=== PATIENT | female | born 1965 | race Caucasian/White ===

== ENCOUNTER 2016-10-21 17:00 | Emergency (ER) | payer MEDICAID ==
[2016-10-21] MEDS ORDERED: LORazepam 1 MG TAB PO ONE (17:10)
--- NOTE | 2016-10-21 18:42 | EDPHY ---
H & P Stated Complaint: BIBA b/c snorted unknown substance today, +ETOH, twitching uncontrollably Time Seen by Provider: 10/21/16 17:01 HPI/ROS: CHIEF COMPLAINT: polysubstance abuse HISTORY OF PRESENT ILLNESS: 51-year-old female presents emergency department by ambulance after snorting on unknown substance given to her by another homeless person. Patient reports she was drinking vodka today. Immediately after she snorted this white powder she felt like she could not move and called 911. Patient reports she thinks they were trying to tranquilize her and steal her money. Patient denies chest pain, abdominal pain. Patient was agitated on arrival to the emergency department and given 2 mg of oral lorazepam. On repeat examination she is calm, denies suicidal ideations, homicidal ideations, auditory and visual hallucinations. Patient reports she has bipolar and takes her Depakote and lithium daily. REVIEW OF SYSTEMS: A comprehensive 10 point review of systems is otherwise negative aside from elements mentioned in the history of present illness. Source: Patient, EMS Exam Limitations: Clinical condition - Personal History LMP (Females 10-55): Post Menopausal Current Tetanus/Diphtheria Vaccine: Yes Current Tetanus Diphtheria and Acellular Pertussis (TDAP): Yes Tetanus Vaccine Date: 2015 - Medical/Surgical History Hx Asthma: No Hx Chronic Respiratory Disease: No Hx Diabetes: No Hx Cardiac Disease: No Hx Renal Disease: No Hx Cirrhosis: No Hx Alcoholism: Yes Hx HIV/AIDS: No Hx Splenectomy or Spleen Trauma: No Other PMH: PMH: DEPRESSION, BIPOLAR, HYPOTHYROID, SCHIZOPHRENIA, HEP C. PSH: BTL - Social History Smoking Status: Never smoked Alcohol Use: Heavy - Physical Exam Exam: Physical Exam Gen: Alert and Oriented, NAD HEENT: PERRL, dry mucous membranes NECK: no meningismus CV: Tachycardic rate and regular rhythm PULM: CTAB, no wheezes ABDOMEN: soft, non tender to palpation, BS present BACK: No CVA tenderness NEURO: Neurologically grossly intact, moves all extremities, no facial asymmetry, follows commands EXTREMITIES: normal appearing SKIN: no rash or break in skin on exposed skin PSYCH: answers questions appropriately denies suicidal ideations, homicidal ideations, auditory and visual hallucinations. Constitutional: Initial Vital Signs Temperature (C) 36.4 C 10/21/16 17:05 Heart Rate 116 H 10/21/16 17:05 Respiratory Rate 20 10/21/16 17:05 Blood Pressure 132/87 H 10/21/16 17:05 O2 Sat (%) 91 L 10/21/16 17:05 O2 Delivery Mode Room Air Allergies/Adverse Reactions: latex [Latex] Allergy (Unknown, Verified 10/21/16 17:25) morphine Allergy (Unknown, Verified 10/21/16 17:25) Home Medications: Medication Instructions Recorded Depakote 10/21/16 Levothyroxine 10/21/16 Flasher Carbonate 10/21/16 Medical Decision Making ED Course/Re-evaluation: Patient wash in the emergency department for 2 hours. She has normal vital signs, normal respirations, normal room air oxygen saturations. She is feeling better after receiving 2 mg of oral lorazepam. Patient is clinically sober, steady gait, no tongue fasciculations, no tremors, no auditory or visual hallucinations. She is requesting to be discharged. I feel comfortable with this. I have recommended not using drugs. Differential Diagnosis: Psychosis including but not limited to chronic psychosis, medication noncompliance, medication side effect, depression and illicit drug use. - Data Points Medications Given: Discontinued Medications Lorazepam (Ativan) 2 mg PO EDNOW ONE Stop: 10/21/16 17:11 Last Admin: 10/21/16 17:19 Dose: 2 mg Departure - Departure Disposition: Home, Routine, Self-Care Clinical Impression: Polysubstance abuse Condition: Good Instructions: Polysubstance Abuse (ED) Additional Instructions: 1. [facility] operate a 21/10 psychiatric crisis unit located at [facility]. The telephone number for the 24 hour crisis center is [phone]. 2. Please return to the ED if you are feeling suicidal, having thoughts of harming yourself/others or should you feel unsafe or have worsening symptoms. Referrals: [facility] [Clinic] - As per Instructions
[2016-10-21 19:18] VITALS: BP 124/100; PULSE 110; RESP 18; TEMP 97.9; O2SAT 96
== END 2016-10-21 19:35 | disposition home or self-care (01) ==
LOC: EDUNIT#
DX: F19.10 Other psychoactive substance abuse, uncomplicated (principal); Z91.040 Latex allergy status

== ENCOUNTER 2016-10-25 19:54 | Emergency (ER) | payer MEDICAID ==
[2016-10-25 20:05] VITALS: BP 151/101; PULSE 102; RESP 20; TEMP 97.7; O2SAT 97
[2016-10-25] MEDS ORDERED: LORazepam 1 MG TAB PO ONE (20:19)
[2016-10-25] MEDS ORDERED: CHLORDIAZEPOXIDE 25MG PREPK#6 BTL TAKEHOME ONE (20:23)
--- NOTE | 2016-10-25 20:23 | EDPHY ---
H & P Stated Complaint: pt snorted meth, c/o cp Time Seen by Provider: 10/25/16 20:12 HPI/ROS: CHIEF COMPLAINT: Meth use HISTORY OF PRESENT ILLNESS: Patient is a 51-year-old homeless female who comes to the emergency department complaining of chest pain after snorting methamphetamine. She states the exact same thing happened a few days ago. She was seen here at that time had a negative EKG and felt better after receiving Ativan. She has a history of depression, bipolar and schizophrenia. She denies any shortness of breath. Her chest pain is now gone. It only lasted for a few minutes. She is very antsy. She states that she has also been drinking. She is not compliant with her medications. REVIEW OF SYSTEMS: Constitutional: denies: chills, fever, recent illness, recent injury EENTM: denies: blurred vision, double vision, nose congestion Respiratory: denies: cough, shortness of breath Cardiac: See HPI, denies: lightheadedness, palpitations Gastrointestinal/Abdominal: denies: abdominal pain, diarrhea, nausea, vomiting, blood streaked stools Genitourinary: denies: dysuria, frequency, hematuria, pain Musculoskeletal: denies: joint pain, muscle pain Skin: denies: lesions, rash, jaundice, bruising Neurological: denies: headache, numbness, paresthesia, tingling, dizziness, weakness Hematologic/Lymphatic: denies: blood clots, easy bleeding, easy bruising Immunologic/allergic: denies: HIV/AIDS, transplant EXAM: GENERAL: Well-appearing, well-nourished and in no acute distress. HEAD: Atraumatic, normocephalic. EYES: Pupils equal round and reactive to light, extraocular movements intact, sclera anicteric, conjunctiva are normal. ENT: TMs normal, nares patent, oropharynx clear without exudates. Moist mucous membranes. NECK: Normal range of motion, supple without lymphadenopathy or JVD. LUNGS: Breath sounds clear to auscultation bilaterally and equal. No wheezes rales or rhonchi. HEART: Regular rate and rhythm without murmurs, rubs or gallops. ABDOMEN: Soft, nontender, normoactive bowel sounds. No guarding, no rebound. No masses appreciated. BACK: No CVA tenderness, no spinal tenderness, step-offs or deformities EXTREMITIES: Normal range of motion, no pitting or edema. No clubbing or cyanosis. NEUROLOGICAL: Cranial nerves II through XII grossly intact. Normal speech, normal gait. 5/5 strength, normal movement in all extremities, normal sensation PSYCH: Normal mood, normal affect. SKIN: Copper colored skin Warm, dry, normal turgor, no visible rashes or lesions. Source: Patient Exam Limitations: No limitations - Personal History LMP (Females 10-55): Post Menopausal Tetanus Vaccine Date: 2015 - Medical/Surgical History Hx Asthma: No Hx Chronic Respiratory Disease: No Hx Diabetes: No Hx Cardiac Disease: No Hx Renal Disease: No Hx Cirrhosis: No Hx Alcoholism: Yes Hx HIV/AIDS: No Hx Splenectomy or Spleen Trauma: No Other PMH: PMH: DEPRESSION, BIPOLAR, HYPOTHYROID, SCHIZOPHRENIA, HEP C. PSH: BTL - Family History Significant Family History: No pertinent family hx - Social History Smoking Status: Never smoked Alcohol Use: Heavy Drug Use: Other Constitutional: Initial Vital Signs Temperature (C) 36.5 C 10/25/16 20:02 Heart Rate 102 H 10/25/16 20:02 Respiratory Rate 20 10/25/16 20:02 Blood Pressure 151/101 H 10/25/16 20:02 O2 Sat (%) 97 10/25/16 20:02 O2 Delivery Mode Room Air Allergies/Adverse Reactions: latex [Latex] Allergy (Unknown, Verified 10/21/16 17:25) morphine Allergy (Unknown, Verified 10/21/16 17:25) Home Medications: Medication Instructions Recorded NK [No Known Home Meds] 10/25/16 Medical Decision Making ED Course/Re-evaluation: The patient is relieved with the results of her EKG. She declines further workup or testing. I will give her Ativan. She would like to go to the alcohol recovery Center. Will release her at this time. I advised her not to use methamphetamine any more. Differential Diagnosis: Partial list of the Differential diagnosis considered include but were not limited to; polysubstance abuse, acute coronary disease, arrhythmia and although unlikely based on the history and physical exam, I also considered infection, head injury, PE. I discussed these differential diagnoses and the plan with the patient as well as the usual and expected course. The patient understands that the diagnosis is provisional and that in medicine we are not always correct and that further workup is often warranted. Usual and customary warnings were given. All of the patient's questions were answered. The patient was instructed to return to the emergency department should the symptoms at all worsen or return, otherwise to followup with the physician as we discussed. - Data Points Medications Given: Discontinued Medications Chlordiazepoxide (Librium 25 Mg Prepack#6) 1 btl TAKEHOME EDNOW ONE Stop: 10/25/16 20:24 Last Admin: 10/25/16 20:43 Dose: 1 btl Lorazepam (Ativan) 2 mg PO EDNOW ONE Stop: 10/25/16 20:20 Last Admin: 10/25/16 20:46 Dose: 2 mg Departure - Departure Disposition: Home, Routine, Self-Care Clinical Impression: Polysubstance abuse Alcoholic intoxication Qualifiers: Complication of substance-induced condition: with unspecified complication Qualified Code(s): F10.929 - Alcohol use, unspecified with intoxication, unspecified Condition: Fair Instructions: Alcohol Intoxication (ED), Polysubstance Abuse (ED) Additional Instructions: Stop using methamphetamine Referrals: Patient,NotPresent [Primary Care Provider] - As per Instructions Riki Germain MD [Medical Doctor] - As per Instructions
--- NOTE | 2016-10-25 20:44 | CPEKG ---
Heart Rate: 96 RR Interval: 625 P-R Interval: 184 QRSD Interval: 88 QT Interval: 384 QTC Interval: 486 P Applegate: 30 QRS Applegate: 27 T Wave Applegate: 21 EKG Severity - BORDERLINE ECG - EKG Impression: SINUS RHYTHM EKG Impression: BORDERLINE PROLONGED QT INTERVAL Electronically Signed By: Senthil Clayton 27-Oct-2016 16:01:40
== END 2016-10-25 21:29 | disposition home or self-care (01) ==
LOC: EDUNIT#
DX: F10.120 Alcohol abuse with intoxication, uncomplicated (principal); F19.10 Other psychoactive substance abuse, uncomplicated; Z91.040 Latex allergy status

== ENCOUNTER 2016-12-03 10:27 | Emergency (ER) | payer MEDICAID ==
--- NOTE | 2016-12-03 11:04 | EDPHY ---
H & P Stated Complaint: etoh withdrawal meth use 2 weeks ago/feeling unstable - Personal History LMP (Females 10-55): Post Menopausal Current Tetanus/Diphtheria Vaccine: Yes Tetanus Vaccine Date: 2015 - Medical/Surgical History Hx Asthma: No Hx Chronic Respiratory Disease: No Hx Diabetes: No Hx Cardiac Disease: No Hx Renal Disease: No Hx Cirrhosis: No Hx Alcoholism: Yes Hx HIV/AIDS: No Hx Splenectomy or Spleen Trauma: No Other PMH: PMH: DEPRESSION, BIPOLAR, HYPOTHYROID, SCHIZOPHRENIA, HEP C. PSH: BTL - Social History Smoking Status: Never smoked Time Seen by Provider: 12/03/16 11:03 Constitutional: Initial Vital Signs Temperature (C) 36.5 C 12/03/16 10:41 Heart Rate 82 12/03/16 10:41 Respiratory Rate 18 12/03/16 10:41 Blood Pressure 117/85 H 12/03/16 10:41 O2 Sat (%) 98 12/03/16 10:41 O2 Delivery Mode Room Air O2 (L/minute) 2 Allergies/Adverse Reactions: latex [Latex] Allergy (Unknown, Verified 12/03/16 10:39) morphine Allergy (Unknown, Verified 12/03/16 10:39) Home Medications: Medication Instructions Recorded NK [No Known Home Meds] 10/25/16 Medical Decision Making ED Course/Re-evaluation: CHIEF COMPLAINT: Alcohol withdrawal. HISTORY OF PRESENT ILLNESS: This patient is an alcoholic 51 year old female arriving with her uncle requesting placement in a long-term alcohol addiction recover program. She states she has been a chronic alcoholic for 20-30 years, and that she has various mental health issues associated with alcohol use. She has been in several addiction recovery programs from 21 days to 6 months, but has relapsed following each program. She is interested in pursuing a a one year program and would like to explore her options for placement. Her uncle at bedside reports she has become very self-destructive, living on the streets and occasionally falling asleep [place]. The patient denies recent trauma or illness. REVIEW OF SYSTEMS: A 10 point review of systems was performed and is negative with the exception of the elements mentioned in the history of present illness. PHYSICAL EXAM: HR, BP, O2 Sat, RR. Temp noted General Appearance: Alert, well hydrated, appropriate, and non-toxic appearing. Head: Atraumatic without scalp tenderness or obvious injury Eyes: Pupils equal, round, reactive to light and accommodation, EOMI, no trauma , no injection. Ears: Clear bilaterally, no perforation, normal landmarks Nose: Atraumatic, no rhinorrhea, clear. Throat: There is no erythema or exudates, no lesions, normal tonsils, mucus membranes moist. Neck: Supple, nontender, no lymphadenopathy. Respiratory: No retractions, no distress, no wheezes, and no accessory muscle use. Lungs are clear to auscultation bilaterally. Cardiovascular: Regular rate and rhythm, no murmurs, rubs, or gallops. Good capillary refill all extremities. Gastrointestinal: Abdomen is soft, nontender, non-distended. Musculoskeletal: Normal active ROM of all extremities, atraumatic. Neurological: Alert, appropriate, and interactive. Nonfocal neuro exam. Skin: No rashes, good turgor, no nodules on palpation. Past medical history: Alcoholism Past surgical history: Noncontributory Family history: Noncontributory Social history: Uncle at bedside. Single. Lives in [place]. Transient, currently staying with her uncle. Endorses use of alcohol, occasional methamphetamine usage. Denies tobacco use. MEDICAL DECISION MAKIN51 year old female presents requesting options for long-term alcohol addiction recovery placement. Plan to have case management consult. Patient now also states that she is suicidal after we described her that it would be very difficult to place her for alcohol rehab with her current insurance status. She wants to be placed for 6 months to a year. Psychiatric evaluation pending ( Senthil Clayton) 8:30 p.m. I was called to the patient's room because she has a rash to her right flank. I evaluated. It looks like insect bites. She states that she was asleep and a pile of ants. She has been scratching it. I will treat her with Benadryl. She is currently being evaluated by Mental Health. 9:20 p.m. the patient has been evaluated by Mental Health. He she is no longer suicidal but is having minor withdrawal symptoms. They would like to transfer to the Addiction recovery Center. The patient agrees with this plan and will follow up with mental health in the crisis Center thereafter. She is not on a hold. I will discharge her [facility] the [facility] with Librium. I will give her 1 more dose of Ativan here in the emergency department. (Blake Storey) - Data Points Laboratory Results: Laboratory Results 12/03/16 11:05 12/03/16 11:05 12/03/16 12/03/16 12/03/16 15:15 13:19 11:05 WBC RBC Hgb Hct MCV MCH MCHC RDW Plt Count MPV Neut % (Auto) Lymph % (Auto) [place] % (Auto) Eos % (Auto) Baso % (Auto) Nucleat RBC Rel Count Absolute Neuts (auto) Absolute Lymphs (auto) Absolute Monos (auto) Absolute Eos (auto) Absolute Basos (auto) Absolute Nucleated RBC Immature Gran % Immature Gran # Sodium Potassium Chloride Carbon Dioxide Anion Gap BUN Creatinine Estimated GFR Glucose Calcium Beta HCG, Qual Beta HCG, Quant 11.70 mIU/mL H mIU/mL (0.00-4.83) Urine Opiates Screen NEGATIVE (NEGATIVE) Urine Barbiturates NEGATIVE (NEGATIVE) Ur Phencyclidine Scrn NEGATIVE (NEGATIVE) Ur Amphetamine Screen NEGATIVE (NEGATIVE) U Benzodiazepines Scrn NON-NEGATIVE H (NEGATIVE) Urine Cocaine Screen NEGATIVE (NEGATIVE) U Marijuana (THC) Screen NEGATIVE (NEGATIVE) Ethyl Alcohol < 10 mg/dL mg/dL (0-10) 12/03/16 12/03/16 12/03/16 11:05 11:05 11:05 WBC 7.26 10^3/uL 10^3/uL (3.80-9.50) RBC 4.93 10^6/uL 10^6/uL (4.18-5.33) Hgb 15.8 g/dL g/dL (12.6-16.3) Hct 44.2 % % (38.0-47.0) MCV 89.7 fL fL (81.5-99.8) MCH 32.0 pg pg (27.9-34.1) MCHC 35.7 g/dL g/dL (32.4-36.7) RDW 13.4 % % (11.5-15.2) Plt Count 302 10^3/uL 10^3/uL (150-400) MPV 11.4 fL fL (8.7-11.7) Neut % (Auto) 46.8 % % (39.3-74.2) Lymph % (Auto) 43.0 % % (15.0-45.0) [place] % (Auto) 8.1 % % (4.5-13.0) Eos % (Auto) 1.0 % % (0.6-7.6) Baso % (Auto) 0.7 % % (0.3-1.7) Nucleat RBC Rel Count 0.0 % % (0.0-0.2) Absolute Neuts (auto) 3.40 10^3/uL 10^3/uL (1.70-6.50) Absolute Lymphs (auto) 3.12 10^3/uL H 10^3/uL (1.00-3.00) Absolute Monos (auto) 0.59 10^3/uL 10^3/uL (0.30-0.80) Absolute Eos (auto) 0.07 10^3/uL 10^3/uL (0.03-0.40) Absolute Basos (auto) 0.05 10^3/uL 10^3/uL (0.02-0.10) Absolute Nucleated RBC 0.00 10^3/uL 10^3/uL (0-0.01) Immature Gran % 0.4 % % (0.0-1.1) Immature Gran # 0.03 10^3/uL 10^3/uL (0.00-0.10) Sodium 138 mEq/L mEq/L (134-144) Potassium 3.6 mEq/L mEq/L (3.5-5.2) Chloride 105 mEq/L mEq/L (97-110) Carbon Dioxide 19 mEq/l L mEq/l (22-31) Anion Gap 14 mEq/L mEq/L (8-16) BUN 14 mg/dL mg/dL (7-23) Creatinine 0.8 mg/dL mg/dL (0.6-1.0) Estimated GFR > 60 Glucose 98 mg/dL mg/dL (70-100) Calcium 10.1 mg/dL mg/dL (8.5-10.4) Beta HCG, Qual POSITIVE Beta HCG, Quant Urine Opiates Screen Urine Barbiturates Ur Phencyclidine Scrn Ur Amphetamine Screen U Benzodiazepines Scrn Urine Cocaine Screen U Marijuana (THC) Screen Ethyl Alcohol Medications Given: Discontinued Medications Sodium Chloride (Ns) 1,000 mls @ 0 mls/hr IV ONCE ONE PRN Reason: Wide Open Stop: 12/03/16 11:27 Last Admin: 12/03/16 11:27 Dose: 1,000 mls Lorazepam (Ativan Injection) 1 mg IVP EDNOW ONE Stop: 12/03/16 11:27 Last Admin: 12/03/16 11:27 Dose: 1 mg Departure - Departure Disposition: Home, Routine, Self-Care Clinical Impression: Alcohol dependence Condition: Fair Instructions: Alcohol Withdrawal (ED), Chlordiazepoxide (By mouth) Referrals: JANAE ARMAS [Other] - As per Instructions
[2016-12-03] MEDS ORDERED: LORazepam 2 MG/ML INJ ONE (11:24)
[2016-12-03] MEDS ORDERED: LORazepam 2 MG/ML INJ IVP ONE (11:26)
[2016-12-03] MEDS ORDERED: NS 1,000 ML IV ONE (11:26)
[2016-12-03 11:36] LABS: % IMMATURE GRANULYOCYTES 0.4 % (0.0-1.1); ABSOLUTE IMMATURE GRANULOCYTES 0.03 10^3/uL (0.00-0.10); ADD DIFF? NO; ADD MORPH? NO; ADD SCAN? NO; ATYPICAL LYMPHOCYTE FLAG 20 (0-99); FRAGMENT RBC FLAG 0 (0-99); HEMATOCRIT 44.2 % (38.0-47.0); HEMOGLOBIN 15.8 g/dL (12.6-16.3); LEFT SHIFT FLG 0 (0-99); LIPEMIA HEMOLYSIS FLAG 90 (0-99); MEAN CELL HEMOGLOBIN CONCENTR. 35.7 g/dL (32.4-36.7); MEAN CELL VOLUME 89.7 fL (81.5-99.8); MEAN PLATELET VOLUME 11.4 fL (8.7-11.7); PLATELET CLUMPS FLAG 0 (0-99); PLATELET COUNT 302 10^3/uL (150-400); RED BLOOD CELL COUNT 4.93 10^6/uL (4.18-5.33); RED CELL DISTRIBUTION WIDTH 13.4 % (11.5-15.2)
[2016-12-03 11:44] LABS: CALCIUM 10.1 mg/dL (8.5-10.4); CARBON DIOXIDE 19 mEq/l (22-31); CHLORIDE 105 mEq/L (97-110); CREATININE 0.8 mg/dL (0.6-1.0); GLOMERULAR FILTRATION RATE > 60; GLUCOSE 98 mg/dL (70-100); SODIUM 138 mEq/L (134-144)
[2016-12-03 11:55] LABS: ANION GAP 14 mEq/L (8-16); POTASSIUM 3.6 mEq/L (3.5-5.2)
[2016-12-03 13:27] LABS: ETHANOL SERUM < 10 mg/dL (0-10)
[2016-12-03] MEDS ORDERED: diphenhydrAMINE 25 MG CAP PO ONE (20:38)
[2016-12-03] MEDS ORDERED: LORazepam 1 MG TAB PO ONE (21:18)
[2016-12-03] MEDS ORDERED: CHLORDIAZEPOXIDE 25MG PREPK#6 BTL TAKEHOME ONE (21:31)
[2016-12-03 22:21] VITALS: BP 122/84; PULSE 80; RESP 16; TEMP 97.9; O2SAT 95
== END 2016-12-03 22:01 | disposition home or self-care (01) ==
DX: F10.20 Alcohol dependence, uncomplicated (principal); Z91.040 Latex allergy status
CPT/HCPCS: 80305; 96374; G0480; J2060

== ENCOUNTER 2016-12-05 21:38 | Emergency (ER) | payer MEDICAID ==
[2016-12-05 22:41] LABS: % IMMATURE GRANULYOCYTES 0.4 % (0.0-1.1); ABSOLUTE IMMATURE GRANULOCYTES 0.03 10^3/uL (0.00-0.10); ADD DIFF? NO; ADD MORPH? NO; ADD SCAN? NO; ATYPICAL LYMPHOCYTE FLAG 10 (0-99); FRAGMENT RBC FLAG 0 (0-99); HEMATOCRIT 45.5 % (38.0-47.0); HEMOGLOBIN 15.6 g/dL (12.6-16.3); LEFT SHIFT FLG 0 (0-99); LIPEMIA HEMOLYSIS FLAG 90 (0-99); MEAN CELL HEMOGLOBIN CONCENTR. 34.3 g/dL (32.4-36.7); MEAN CELL VOLUME 93.4 fL (81.5-99.8); MEAN PLATELET VOLUME 10.9 fL (8.7-11.7); PLATELET CLUMPS FLAG 0 (0-99); PLATELET COUNT 280 10^3/uL (150-400); RED BLOOD CELL COUNT 4.87 10^6/uL (4.18-5.33); RED CELL DISTRIBUTION WIDTH 13.7 % (11.5-15.2)
[2016-12-05 22:48] LABS: ANION GAP 20 mEq/L (8-16); CALCIUM 9.5 mg/dL (8.5-10.4); CARBON DIOXIDE 17 mEq/l (22-31); CHLORIDE 113 mEq/L (97-110); CREATININE 0.7 mg/dL (0.6-1.0); ETHANOL SERUM 179 mg/dL (0-10); GLOMERULAR FILTRATION RATE > 60; GLUCOSE 106 mg/dL (70-100); POTASSIUM 4.3 mEq/L (3.5-5.2); SODIUM 150 mEq/L (134-144)
[2016-12-05] MEDS ORDERED: chlordiazePOXIDE 25 MG CAP PO ONE (23:05)
--- NOTE | 2016-12-05 23:09 | EDPHY ---
Mental Health General Previous Psychiatric History: previous inpatient psychiatric admission, bipolar , substance abuse Smoking Status: Never smoked Time Patient Placed on Detainer: 22:55 Time Medically Cleared for Psychiatric Evaluation: 23:00 Narrative: I assumed care of the patient at 7 o'clock in the morning pending psychiatric disposition. Update at 10:00 a.m.: The patient was seen by psychiatric evaluation services. She is no longer intoxicated. She currently denies suicidal ideation. She does contract for safety. She would like to be discharged for further outpatient care. The patient will be referred to [facility] and also given information on alcoholics anonymous. The patient is also given the contact information of the crisis Center. The patient does understand that she can return to the emergency department at any time should she feel worsening symptoms of depression, recurrent suicidal thoughts or have additional acute concerns. (Lee Toribio) CHIEF COMPLAINT: ETOH, suicidal, homicidal HISTORY OF PRESENT ILLNESS: 51-year-old female presents the emergency department by ambulance from the Addiction recovery Center for suicidal ideations and homicidal ideations. Patient reports she is going crazy because of somebody that is stalking her. She does not want to live anymore and she wants to kill him also. Patient reports she has been drinking for 5 weeks. She has been to multiple treatment programs. She denies any drug use. Patient reports she has not taken her bipolar medications for several weeks, last drink was earlier today, patient is concerned she will start withdrawing from alcohol. REVIEW OF SYSTEMS: Unable to obtain due to intoxication and mental status Physical Exam Gen: Awake, alert, tearful HEENT: PERRL, moist mucous membranes NECK: no meningismus CV: regular rate and regular rhythm PULM: CTAB, no wheezes ABDOMEN: soft, non tender to palpation, BS present BACK: No CVA tenderness NEURO: Follows commands, moves all extremities, no facial asymmetry EXTREMITIES: normal appearing SKIN: no rash or break in skin on exposed skin PSYCH: Reports suicidal ideations, homicidal ideations, auditory and visual hallucinations (Ailyn Wright) Medical Decision Makin:30 a.m.- The patient has been stable throughout my shift. He did not require any medications for me for alcohol withdrawal. We are currently awaiting her sobriety for psychiatric evaluation. The case will be signed out to the oncoming provider Dr. Toribio. (Serenity Lubin) 0100-Pt pending eval. Report passed on to Dr. Lubin at the end of my shift. (Ailyn Wright) - Objective Vital Signs: Initial Vital Signs Temperature (C) 36.9 C 12/05/16 21:55 Heart Rate 87 12/05/16 21:55 Respiratory Rate 16 12/05/16 21:55 Blood Pressure 115/76 12/05/16 21:55 O2 Sat (%) 95 12/05/16 21:55 O2 Delivery Mode Room Air Allergies/Adverse Reactions: latex [Latex] Allergy (Unknown, Verified 12/03/16 10:39) morphine Allergy (Unknown, Verified 12/03/16 10:39) Home Medications: Medication Instructions Recorded NK [No Known Home Meds] 10/25/16 Medications Given: Discontinued Medications Chlordiazepoxide HCl (Librium) 50 mg PO EDNOW ONE Stop: 12/05/16 23:06 Last Admin: 12/05/16 23:31 Dose: 50 mg Chlordiazepoxide HCl (Librium) 50 mg PO EDNOW ONE Stop: 12/06/16 08:16 Last Admin: 12/06/16 08:21 Dose: 50 mg Lorazepam (Ativan Injection) 1 mg IVP EDNOW ONE Stop: 12/06/16 10:46 Last Admin: 12/06/16 10:47 Dose: Not Given Lorazepam (Ativan) 1 mg PO EDNOW ONE Stop: 12/06/16 10:46 Last Admin: 12/06/16 10:54 Dose: 1 mg Laboratory Results: Laboratory Results 12/05/16 22:00 12/05/16 22:00 Departure - Departure Disposition: Home, Routine, Self-Care Clinical Impression: Severe major depression, Alcoholic intoxication Condition: Good Instructions: Depression (ED), Alcohol Intoxication (ED) Additional Instructions: 1. Please follow-up with the mental health resources provided in the ED today. 2. [facility] does operate a 21/10 psychiatric crisis unit located at [facility] The telephone number for the 24 hour crisis center is [phone]. 3. Please return to the ED if you are feeling suicidal, having thoughts of harming yourself/others or should you feel unsafe or have worsening symptoms. Referrals: JANAE ARMAS [Other] - As per Instructions
[2016-12-06 08:03] VITALS: O2SAT 95
[2016-12-06] MEDS ORDERED: chlordiazePOXIDE 25 MG CAP PO ONE (08:15)
[2016-12-06] MEDS ORDERED: LORazepam 2 MG/ML INJ IVP ONE (10:45)
[2016-12-06] MEDS ORDERED: LORazepam 1 MG TAB PO ONE (10:45)
[2016-12-06 11:00] VITALS: BP 129/98; PULSE 87; RESP 15; TEMP 97.2
== END 2016-12-06 12:03 | disposition home or self-care (01) ==
LOC: EDUNIT#
DX: F32.2 Major depressive disorder, single episode, severe without psychotic features (principal); F10.129 Alcohol abuse with intoxication, unspecified; Z91.040 Latex allergy status
CPT/HCPCS: 80305; G0480

== ENCOUNTER 2017-01-09 12:50 | Emergency (ER) | payer MEDICAID ==
[2017-01-09] MEDS ORDERED: LORazepam 2 MG/ML INJ IVP ONE (13:30)
--- NOTE | 2017-01-09 13:31 | EDPHY ---
H & P Stated Complaint: SENT FROM [facility] FOR ETOH DETOX Time Seen by Provider: 01/09/17 13:20 HPI/ROS: CHIEF COMPLAINT: Alcohol withdrawal HISTORY OF PRESENT ILLNESS: The patient is referred to the emergency department [facility] for alcohol withdrawal. She presented there last night. She will today with symptoms of withdrawal including tremor and extremity paresthesias. The patient has not had vomiting hallucinations. The patient denies significant past medical history. She has no complaints of acute pain. She denies recent trauma. She states that her last drink was approximately 1 and 1/2 days ago. REVIEW OF SYSTEMS: A comprehensive 10 point review of systems is otherwise negative aside from elements mentioned in the history of present illness. Source: Patient Exam Limitations: No limitations - Personal History LMP (Females 10-55): Post Menopausal Current Tetanus/Diphtheria Vaccine: Yes Tetanus Vaccine Date: 2015 - Medical/Surgical History Hx Asthma: No Hx Chronic Respiratory Disease: No Hx Diabetes: No Hx Cardiac Disease: No Hx Renal Disease: No Hx Cirrhosis: No Hx Alcoholism: Yes Hx HIV/AIDS: No Hx Splenectomy or Spleen Trauma: No Other PMH: PMH: DEPRESSION, BIPOLAR, HYPOTHYROID, SCHIZOPHRENIA, HEP C. PSH: BTL - Social History Smoking Status: Never smoked - Physical Exam Exam: General Appearance: Slightly disheveled, no acute distress, mildly tremulous Eyes: Pupils equal and round no pallor or injection ENT, Mouth: Mucous membranes moist Respiratory: There are no retractions, lungs are clear to auscultation Cardiovascular: Regular rate and rhythm Gastrointestinal: Abdomen is soft and nontender, no masses, bowel sounds normal Neurological: A&O, normal motor function, normal sensory exam, normal cranial nerves Skin: Warm and dry, no rashes Musculoskeletal: Neck is supple nontender Extremities: symmetrical, full range of motion Constitutional: Initial Vital Signs Temperature (C) 36.5 C 01/09/17 12:53 Heart Rate 93 01/09/17 12:53 Respiratory Rate 17 01/09/17 12:53 Blood Pressure 117/90 H 01/09/17 12:53 O2 Sat (%) 95 01/09/17 12:53 O2 Delivery Mode Room Air Allergies/Adverse Reactions: latex [Latex] Allergy (Unknown, Verified 01/09/17 12:52) morphine Allergy (Unknown, Verified 01/09/17 12:52) Home Medications: Medication Instructions Recorded NK [No Known Home Meds] 10/25/16 Medical Decision Making ED Course/Re-evaluation: The patient had an IV established. She received 2 mg of IV Ativan. The patient was re-evaluated by myself at 2:00 p.m.. She is feeling much better. Her tremor and paresthesias have resolved. Her abdominal examination remains benign. She is neurologically intact without evidence of any delirium tremens. The patient will be discharged back to the [facility] with a prepack for Librium. She is given customary aftercare instructions and return precautions. She has no clinical evidence of an acute abdomen or significant vital sign abnormality. Differential Diagnosis: Differential diagnosis considered includes pancreatitis, alcohol withdrawal syndrome, delirium tremens, metabolic abnormality, alcohol withdrawal seizure - Data Points Medications Given: Discontinued Medications Lorazepam (Ativan Injection) 2 mg IVP EDNOW ONE Stop: 01/09/17 13:31 Last Admin: 01/09/17 13:42 Dose: 2 mg Departure - Departure Disposition: Home, Routine, Self-Care Clinical Impression: Alcohol withdrawal Condition: Good Instructions: Alcohol Withdrawal (ED) Additional Instructions: 1. Please return to the [facility] for further assistance with her alcohol withdrawal and dependence. 2. Please return to the ED for symptoms of worsening alcohol withdrawal, seizure , acute abdominal pain, vomiting or other concerns. 3. Please follow up with your primary care provider as scheduled. Referrals: JANAE ARMAS [Other] - As per Instructions
[2017-01-09] MEDS ORDERED: CHLORDIAZEPOXIDE 25MG PREPK#6 BTL TAKEHOME ONE (14:10)
[2017-01-09 14:38] VITALS: BP 117/72; PULSE 105; RESP 16; TEMP 99; O2SAT 93
== END 2017-01-09 14:51 | disposition home or self-care (01) ==
DX: F10.239 Alcohol dependence with withdrawal, unspecified (principal); Z91.040 Latex allergy status
CPT/HCPCS: 96374; J2060

== ENCOUNTER 2017-01-10 19:36 | Emergency (ER) | payer MEDICAID ==
--- NOTE | 2017-01-10 20:14 | EDPHY ---
H & P Time Seen by Provider: 01/10/17 20:02 HPI/ROS: CHIEF COMPLAINT: Fall with head injury HISTORY OF PRESENT ILLNESS: Patient had alcohol today. She fell on the bus hitting her head on some sharp object and presents with scalp laceration. Bleeding from the scalp but denies other injuries. Specifically denies neck pain or weakness or numbness in extremities. REVIEW OF SYSTEMS: Eye: no change in vision ENT: no sore throat Cardiac: no chest pain or syncope Pulmonary: Not short of breath Abdomen: No abdominal pain or vomiting Musculoskeletal: no back pain or neck pain Skin: Scalp laceration Neuro: no headache Constitutional: no fever : no urinary symptoms A comprehensive 10 point review of systems is otherwise negative aside from elements mentioned in the history of present illness. PAST MEDICAL HISTORY: Includes hypothyroid and hep C, psychiatric disease. Discharge summary dated 10/13/2011 states depression and anxiety and personality disorder. Social history: Recent alcohol General Appearance: Alert and conversant, cooperative. Eyes: No scleral icterus. ENT, Mouth: Normal mucous membranes. 1.5 cm occipital scalp laceration. Respiratory: Normal respiratory effort, breath sounds equal, lungs are clear to auscultation. Cardiovascular: Regular rate and rhythm. Gastrointestinal: Abdomen is soft and non tender. Neurological: Alert and oriented x3. Slightly slurred speech but otherwise cooperative. Face symmetric, normal movement and sensation in all extremities. Skin: Scalp laceration as above. Musculoskeletal: No midline spinal tenderness. Psychiatric: Not agitated. Emergency Department course/MDM: Tetanus up-to-date. Not syncope by history. Plan for wound care and closure. Patient hit head and has slurred speech and is intoxicated, neurologic exam not fully reliable given intoxication. Noncontrast head and cervical spine scanning for head trauma and altered mental status from alcohol. 2044: Negative head and cspine CT for trauma, Dr. Betancourt. Smoking Status: Never smoked Constitutional: Initial Vital Signs Temperature (C) 36.5 C 01/10/17 19:39 Heart Rate 92 01/10/17 19:39 Respiratory Rate 18 01/10/17 19:39 Blood Pressure 112/81 H 01/10/17 19:39 O2 Sat (%) 94 01/10/17 19:39 O2 Delivery Mode Room Air Allergies/Adverse Reactions: latex [Latex] Allergy (Unknown, Verified 01/09/17 12:52) morphine Allergy (Unknown, Verified 01/09/17 12:52) Home Medications: Medication Instructions Recorded Ativan 01/10/17 LIBRIUM 01/10/17 Medical Decision Making Procedures: Procedure: Laceration repair. Verbal consent was obtained from the patient. The 1.5 cm laceration on the scalp was anesthetized using 0.5% bupivacaine with epinephrine. The wound was irrigated with standard emergency department protocol, draped and explored. There were no deep structures involved. No foreign body found. The wound was repaired with irma. The wound repair was simple. Excellent hemostasis was obtained. Wound care instructions were discussed and the patient was warned regarding scarring. The procedure was performed by myself. Differential Diagnosis: Differential diagnosis considered for head injury including but not limited to concussion, skull fracture, intraparenchymal contusion, subarachnoid, subdural and epidural hematoma. Departure - Departure Disposition: Home, Routine, Self-Care Clinical Impression: Scalp laceration Qualifiers: Encounter type: initial encounter Qualified Code(s): S01.01XA - Laceration without foreign body of scalp, initial encounter Condition: Good Instructions: Laceration (ED), Head Injury (ED) Additional Instructions: Wound Care Follow-Up: Removal of sutures in 10 days. Suture removal is complimentary in uncomplicated cases. Infection or abnormal findings would require reevaluation by the MD. In that case, you may be billed. Referrals: OLAYINKA ARMAS [Other] - As per Instructions [facility],. [Clinic] - As per Instructions
[2017-01-10 22:05] VITALS: O2SAT 95
[2017-01-10] MEDS ORDERED: CHLORDIAZEPOXIDE 25MG PREPK#6 BTL TAKEHOME ONE (22:12)
[2017-01-10 22:19] VITALS: BP 112/78; PULSE 74; RESP 18; TEMP 97.9
== END 2017-01-10 22:19 | disposition home or self-care (01) ==
LOC: EDUNIT#
PROC: 0HQ0XZZ Repair Scalp Skin, External Approach (ICD-10-PCS; principal; 2017-01-10)
DX: S01.01XA Laceration without foreign body of scalp, initial encounter (principal); Z91.040 Latex allergy status; W18.09XA Striking against other object with subsequent fall, initial encounter

== ENCOUNTER 2017-01-21 17:32 | Emergency (ER) | payer MEDICAID ==
[2017-01-21] MEDS ORDERED: chlordiazePOXIDE 25 MG CAP PO ONE (17:45)
[2017-01-21] MEDS ORDERED: NS 1,000 ML IV ONE (17:45)
[2017-01-21] MEDS ORDERED: LORazepam 2 MG/ML INJ IVP ONE (17:45)
--- NOTE | 2017-01-21 17:47 | EDPHY ---
H & P Time Seen by Provider: 01/21/17 17:32 HPI/ROS: CHIEF COMPLAINT: Alcohol withdrawal HISTORY OF PRESENT ILLNESS: Patient is a 50-year-old female with a history of alcohol abuse and alcohol withdrawal. She states her last drink was approximately 1:00 a.m. last night. She was seen at [facility]. She has received a total of 3 doses of Librium which is the maximum. The patient was subsequently sent to the emergency department. She is still feeling shaky and tremulous. She has had nausea and an episode of vomiting. No abdominal pain. No chest pain. Per report, the [facility] will take her back after she is evaluated in the emergency department. REVIEW OF SYSTEMS: My complete review of systems is negative except as mentioned in the HPI. Past Medical/Surgical History: Includes alcohol withdrawal, alcohol abuse, polysubstance abuse Smoking Status: Never smoked Physical Exam: Vitals noted GENERAL: mild acute distress, alert. HEENT: Eyes normal to inspection, normal pharynx, no signs of dehydration. NECK: No thyromegaly, no lymphadenopathy, supple. RESPIRATORY: Clear to auscultation bilaterally, no rales, rhonchi or wheezing. CVS: regular rhythm with minimal tachycardia, no rubs, murmurs, or gallops. ABDOMEN: Soft, nontender, nondistended, no organomegaly. BACK: Normal to inspection, no CVA tenderness. SKIN: Normal color, no rash, warm, dry. No pallor. EXTREMITIES: No pedal edema, no calf tenderness, no Homans sign or cords, no joint swelling. NEURO/PSYCH: [tremulous. Mild tongue tremor. Alert and oriented x3, normal mood and affect, normal motor sensory exam. No obvious cranial nerve deficit. Constitutional: Initial Vital Signs Temperature (C) 37.3 C 01/21/17 17:38 Heart Rate 96 01/21/17 17:38 Respiratory Rate 20 01/21/17 17:38 Blood Pressure 114/89 H 01/21/17 17:38 O2 Sat (%) 95 01/21/17 17:38 O2 Delivery Mode Room Air Allergies/Adverse Reactions: latex [Latex] Allergy (Unknown, Verified 01/09/17 12:52) morphine Allergy (Unknown, Verified 01/09/17 12:52) Home Medications: Medication Instructions Recorded Ativan 01/10/17 LIBRIUM 01/10/17 Medical Decision Making ED Course/Re-evaluation: In the emergency department IV was placed. The patient was given 1 L of normal saline for hydration. She was given Ativan 1 mg IV and Librium 25 mg orally for alcohol withdrawal. I do not feel the patient needs laboratory studies. On recheck the patient was improved. Her shaking has decreased. She was sleeping in the emergency department. Patient agrees with the plan to be transferred back to the [facility]. She is given warnings prior to leaving. Differential Diagnosis: My differential includes but is not limited to alcohol withdrawal, drug abuse, alcohol abuse, electrolyte abnormality, sugar abnormality - Data Points Medications Given: Discontinued Medications Chlordiazepoxide HCl (Librium) 25 mg PO EDNOW ONE Stop: 01/21/17 17:46 Last Admin: 01/21/17 17:57 Dose: 25 mg Sodium Chloride (Ns) 1,000 mls @ 0 mls/hr IV ONCE ONE PRN Reason: Wide Open Stop: 01/21/17 17:46 Last Admin: 01/21/17 17:57 Dose: 1,000 mls Lorazepam (Ativan Injection) 1 mg IVP EDNOW ONE Stop: 01/21/17 17:46 Last Admin: 01/21/17 17:57 Dose: 1 mg Departure - Departure Disposition: Home, Routine, Self-Care Clinical Impression: Alcohol withdrawal Qualifiers: Complication of substance-induced condition: uncomplicated Qualified Code(s): F10.230 - Alcohol dependence with withdrawal, uncomplicated Condition: Good Instructions: Alcohol Withdrawal (ED) Additional Instructions: Return with worsening tremors, nausea vomiting, or any other concerns. Referrals: Kishor Barth MD [Medical Doctor] - 5-7 days, call for appt.
[2017-01-21] MEDS ORDERED: CHLORDIAZEPOXIDE 25MG PREPK#6 BTL TAKEHOME ONE (18:35)
[2017-01-21 18:52] VITALS: BP 105/65; PULSE 91; RESP 16; TEMP 97.9; O2SAT 97
== END 2017-01-21 18:50 | disposition home or self-care (01) ==
LOC: EDUNIT#
DX: F10.230 Alcohol dependence with withdrawal, uncomplicated (principal); R11.2 Nausea with vomiting, unspecified; Z91.040 Latex allergy status
CPT/HCPCS: 96374

== ENCOUNTER 2017-01-23 21:14 | Emergency (ER) | payer MEDICAID ==
--- NOTE | 2017-01-23 21:31 | EDPHY ---
H & P Source: Patient Exam Limitations: Intoxication - Personal History Tetanus Vaccine Date: 2015 - Medical/Surgical History Hx Asthma: No Hx Chronic Respiratory Disease: No Hx Diabetes: No Hx Cardiac Disease: No Hx Renal Disease: No Hx Cirrhosis: No Hx Alcoholism: Yes Hx HIV/AIDS: No Hx Splenectomy or Spleen Trauma: No Other PMH: PMH: ETOH, DEPRESSION, BIPOLAR, HYPOTHYROID, SCHIZOPHRENIA, HEP C. PSH: BTL - Social History Smoking Status: Never smoked Time Seen by Provider: 01/23/17 21:28 HPI/ROS: HPI: This is a 51-year-old female who presents with Chief Complaint: M1 hold Location:psych Quality: M1 hold Duration: Prior to arrival Signs and Symptoms:+ suicidal ideation without a plan, no homicidal ideation, no paranoia, no hallucinations, + depression, + alcohol abuse Timing: Acute on chronic Severity: Moderate to severe Context: Patient presents to the emergency room with [facility] on M1 hold. Officers were called to house who found the patient on the doorstep, screaming, crying and talking to herself. She admits to being under the influence of alcohol but will not relate how much. She keeps repeating, "I want to kill myself and go to a psych hospital." She does not have a plan. She reports that she has been to inpatient psychiatric treatment 2 other times. She denies using recreational drugs today. Postmenopausal. History of bipolar disorder, PTSD. Admits to being noncompliant on medications. Homeless. During the interview, patient became angry, raised her voice, and asked why was looking at her like that. She states she went to talk to me anymore. She did not like me. Modifying Factors: None Comment: ROS: see HPI Constitutional: No fever, no chills, no weight loss Eyes: No blurred vision Respiratory: No shortness of breath, no cough Cardiovascular: No chest pain Gastrointestinal: No nausea, no vomiting, no diarrhea Genitourinary: No dysuria Extremities: No myalgias Neurologic: No weakness, no numbness Skin: No rashes Hematologic: No bruising, no bleeding MEDICAL/SURGICAL/SOCIAL HISTORY: Medical history: Hepatitis-C, hypothyroidism. Does not take any regular medications. Surgical history: Bilateral tubal ligation Social history: Homeless CONSTITUTIONAL: Untidy middle age white female appears older than stated age, awake and alert, no obvious distress HEENT: Atraumatic and normocephalic, PERRL, EOMI. Tympanic membranes clear. Oropharynx clear, no exudate and moist pink mucosa. Airway patent. No lymphadenopathy. No meningismus. Cardiovascular: Normal S1/S2, regular rate, regular rhythm, without murmur rub or gallop. PULMONARY/CHEST: Symmetrical and nontender. Clear to auscultation bilaterally. Good air movement. No accessory muscle usage. ABDOMEN: Soft, nondistended, nontender, no rebound, no guarding, no peritoneal signs, no masses or organomegaly. No CVAT. EXTREMITIES: 2/2 pulses, strength 5/5, no deformities, no clubbing, no cyanosis or edema. NEUROLOGICAL: no focal neuro deficits. GCS 15. Slurred speech. SKIN: Warm and dry, no erythema. no rash. Good capillary refill. PSYCH: Poor eye contact, no flight of ideas, organized thought process, poor insight and judgment, no auditory and visual command hallucinations, + suicidal ideation WITHOUT a plan, now homicidal ideation, no paranoia (Esteban,Terra) Constitutional: Initial Vital Signs Temperature (C) 34.5 C L 01/23/17 21:55 Heart Rate 78 01/23/17 21:55 Respiratory Rate 16 01/23/17 21:55 Blood Pressure 101/81 H 01/23/17 21:55 O2 Sat (%) 91 L 01/23/17 21:55 O2 Delivery Mode Room Air Allergies/Adverse Reactions: latex [Latex] Allergy (Unknown, Verified 01/09/17 12:52) morphine Allergy (Unknown, Verified 01/09/17 12:52) Home Medications: Medication Instructions Recorded NK [No Known Home Meds] 01/23/17 Medical Decision Making ED Course/Re-evaluation: Labs, urine drug screen ordered 2042: M1 hold. Patient is clearly under the influence of alcohol and intoxicated. She is able to be redirected with verbal commands and calm down. No chemical intervention ordered. Suspect will outpatient to sober up and re- evaluate for suicidal ideations. 5: Reviewed labs and ethanol level 294, UDS is positive for benzodiazepine No signs of delirium/seizure/electrolyte imbalance/acute kidney injury 0100: Reassessed patient; sleeping soundly. End of Shift. Signed over to Dr. Harrell. Suspect after several hours, and patient is no longer intoxicated, will repeat evaluation to determine if truly suicidal once sober. Patient has been calm and cooperative throughout my shift. No interventions have been required. (Mellissa Orellana) 190: Patient has been evaluated by mental health. Medically cleared. They do not feel that she needs inpatient psychiatric hospitalization. She is not suicidal. She presented to the emergency room intoxicated with alcohol. She is now sober. I did going [facility] and meet with her. She is calm and cooperative. Has no complaints she would like to be discharged. (Balbir Arora) Differential Diagnosis: Altered mental status including but not limited to hypoglycemia, infectious process, electrolyte abnormality, head injury and intoxicants. (Mellissa Orellana) Other Provider: 0100 care assumed by me from MORENA rOellana pending sober mental health evaluation. [address] patient signed out to Dr. Storey pending mental health evaluation. No issues during my care this patient overnight. (Ishan Harrell) 3:00 p.m. patient has been calm and her room. She did receive Librium for mild withdrawal symptoms. We are awaiting evaluation . Care transferred to Dr. Balbir Arora. (Blake Storey) - Data Points Laboratory Results: Laboratory Results 01/23/17 21:52 01/23/17 21:52 Medications Given: Discontinued Medications Chlordiazepoxide HCl (Librium) 50 mg PO EDNOW ONE Stop: 01/24/17 02:21 Last Admin: 01/24/17 02:52 Dose: 50 mg Chlordiazepoxide HCl (Librium) 50 mg PO EDNOW ONE Stop: 01/24/17 10:41 Last Admin: 01/24/17 10:47 Dose: 50 mg Lorazepam (Ativan) 2 mg PO ONCE ONE Stop: 01/24/17 16:55 Last Admin: 01/24/17 17:01 Dose: 2 mg Departure - Departure Disposition: Home, Routine, Self-Care Clinical Impression: Depression with suicidal ideation Alcohol intoxication Qualifiers: Complication of substance-induced condition: uncomplicated Qualified Code(s): F10.920 - Alcohol use, unspecified with intoxication, uncomplicated Instructions: Alcohol Intoxication (ED), Abuse of Alcohol (ED) Additional Instructions: 1. If you have thoughts of wanting to harm herself or anybody else please return emergency room immediately. Referrals: NONE *PRIMARY CARE P,. [Primary Care Provider] - As per Instructions
[2017-01-23 22:27] LABS: % IMMATURE GRANULYOCYTES 0.3 % (0.0-1.1); ABSOLUTE IMMATURE GRANULOCYTES 0.02 10^3/uL (0.00-0.10); ADD DIFF? NO; ADD MORPH? NO; ADD SCAN? NO; ATYPICAL LYMPHOCYTE FLAG 10 (0-99); FRAGMENT RBC FLAG 0 (0-99); HEMOGLOBIN 15.7 g/dL (12.6-16.3); LEFT SHIFT FLG 0 (0-99); LIPEMIA HEMOLYSIS FLAG 90 (0-99); MEAN CELL HEMOGLOBIN 33.4 pg (27.9-34.1); MEAN CELL HEMOGLOBIN CONCENTR. 34.9 g/dL (32.4-36.7); MEAN CELL VOLUME 95.7 fL (81.5-99.8); MEAN PLATELET VOLUME 10.7 fL (8.7-11.7); PLATELET CLUMPS FLAG 0 (0-99); PLATELET COUNT 330 10^3/uL (150-400); RED CELL DISTRIBUTION WIDTH 14.1 % (11.5-15.2)
[2017-01-23 22:35] LABS: ANION GAP 20 mEq/L (8-16); CALCIUM 9.2 mg/dL (8.5-10.4); CARBON DIOXIDE 20 mEq/l (22-31); CHLORIDE 108 mEq/L (97-110); CREATININE 0.7 mg/dL (0.6-1.0); ETHANOL SERUM 294 mg/dL (0-10); GLOMERULAR FILTRATION RATE > 60; GLUCOSE 86 mg/dL (70-100); POTASSIUM 3.5 mEq/L (3.5-5.2); SODIUM 148 mEq/L (134-144)
[2017-01-24] MEDS ORDERED: chlordiazePOXIDE 25 MG CAP PO ONE ×2 (02:20→10:40)
[2017-01-24 16:26] VITALS: TEMP 98.2
[2017-01-24] MEDS ORDERED: LORazepam 1 MG TAB PO ONE (16:54)
[2017-01-24 19:15] VITALS: BP 105/68; PULSE 88; RESP 18; O2SAT 95
== END 2017-01-24 19:15 | disposition home or self-care (01) ==
DX: R45.851 Suicidal ideations (principal); F32.9 Major depressive disorder, single episode, unspecified; F10.920 Alcohol use, unspecified with intoxication, uncomplicated; Z91.040 Latex allergy status
CPT/HCPCS: 80305; G0480

== ENCOUNTER 2017-07-09 19:38 | Emergency (ER) | payer MEDICAID ==
--- NOTE | 2017-07-09 19:41 | EDPHY ---
H & P Time Seen by Provider: 07/09/17 19:40 HPI/ROS: HPI: This is a 52-year-old female who presents with Chief Complaint: Alcohol intoxication Location: psych Quality: Alcohol intoxication Duration: Today Signs and Symptoms: no auditory and visual command hallucinations, no suicidal ideation with a plan, no homicidal ideation, not paranoid Timing: Acute on chronic Severity: Moderate Context: Patient has a history of alcoholism, depression, bipolar rhythm, schizophrenia accompanied by police on [facility] hold requesting medical clearance. [facility] as [facility]'s friend was intoxicated and becoming belligerent to bystanders. Upon arrival, patient then became verbally aggressive and uncooperative to police. She admits to drinking alcohol today. She denies any medical complaints. She reports that she has not use any recreational drugs today. Patient denies suicidal ideation/ homicidal ideation/hallucinations/alcohol withdrawal seizures. Modifying Factors: None Comment: ROS: see HPI Constitutional: No fever, no chills, no weight loss Eyes: No blurred vision Respiratory: No shortness of breath, no cough Cardiovascular: No chest pain Gastrointestinal: No nausea, no vomiting, no diarrhea Genitourinary: No dysuria Extremities: No myalgias Neurologic: No weakness, no numbness Skin: No rashes Hematologic: No bruising, no bleeding MEDICAL/SURGICAL/SOCIAL HISTORY: PMH: ETOH, DEPRESSION, BIPOLAR, HYPOTHYROID, SCHIZOPHRENIA, HEP C PSH: BTL Social history: Homeless CONSTITUTIONAL: Yelling adult white female dressed in tube top and sports bra, clearly intoxicated and smells of alcohol, awake and alert HEENT: Atraumatic and normocephalic, PERRL, EOMI. Tympanic membranes clear. Oropharynx clear, no exudate and moist pink mucosa. Airway patent. No lymphadenopathy. No meningismus. Cardiovascular: Normal S1/S2, regular rate, regular rhythm, without murmur rub or gallop. PULMONARY/CHEST: Symmetrical and nontender. Clear to auscultation bilaterally. Good air movement. No accessory muscle usage. ABDOMEN: Soft, nondistended, nontender, no rebound, no guarding, no peritoneal signs, no masses or organomegaly. No CVAT. EXTREMITIES: 2/2 pulses, strength 5/5, no deformities, no clubbing, no cyanosis or edema. NEUROLOGICAL: no focal neuro deficits. GCS 15. SKIN: Warm and dry, no erythema. no rash. Good capillary refill. PSYCH: Good eye contact, no flight of ideas, organized thought process, fair insight and judgment, no auditory and visual command hallucinations, no suicidal ideation with a plan, no homicidal ideation, not paranoid Source: Patient, Police, RN/MD Exam Limitations: Intoxication - Personal History Tetanus Vaccine Date: 2015 - Medical/Surgical History Hx Asthma: No Hx Chronic Respiratory Disease: No Hx Diabetes: No Hx Cardiac Disease: No Hx Renal Disease: No Hx Cirrhosis: No Hx Alcoholism: Yes Hx HIV/AIDS: No Hx Splenectomy or Spleen Trauma: No Other PMH: PMH: ETOH, DEPRESSION, BIPOLAR, HYPOTHYROID, SCHIZOPHRENIA, HEP C. PSH: BTL - Social History Smoking Status: Never smoked Constitutional: Initial Vital Signs Temperature (C) 36.6 C 07/09/17 19:40 Heart Rate 96 07/09/17 19:40 Respiratory Rate 16 07/09/17 19:40 Blood Pressure 140/110 H 07/09/17 19:40 O2 Sat (%) 92 07/09/17 19:40 O2 Delivery Mode Room Air Allergies/Adverse Reactions: latex [Latex] Allergy (Unknown, Verified 01/09/17 12:52) morphine Allergy (Unknown, Verified 01/09/17 12:52) Home Medications: Medication Instructions Recorded NK [No Known Home Meds] 01/23/17 Medical Decision Making ED Course/Re-evaluation: Patient is clearly intoxicated but able to ambulate and follows commands. Patient is cooperative with me with exam. She has no complaints. Does not meet M1 hold/detainer criteria. Patient will be discharged to the [facility]. This patient was seen under the supervision of my secondary supervising physician. I evaluated care for this patient independently. Differential Diagnosis: Differential diagnosis includes but is not limited to electrolyte abnormality, intracranial process, alcohol intoxication, polysubstance intoxication, bipolar disorder. Departure - Departure Disposition: Home, Routine, Self-Care Clinical Impression: Alcohol intoxication Qualifiers: Complication of substance-induced condition: uncomplicated Qualified Code(s): F10.920 - Alcohol use, unspecified with intoxication, uncomplicated Condition: Good Instructions: Alcohol Intoxication (ED) Additional Instructions: Please slowly decrease alcohol and illegal drug use over time. Call 911 if you have thoughts of hurting or killing yourself or anyone else, or have any new or worsening symptoms that concern you. Patient is medically clear for discharge to the [facility]. Referrals: [facility] 24 Hours [Outside] - As per Instructions
[2017-07-09 19:43] VITALS: BP 140/110
== END 2017-07-09 19:46 | disposition home or self-care (01) ==
LOC: EDUNIT#
DX: F10.920 Alcohol use, unspecified with intoxication, uncomplicated (principal); Z91.040 Latex allergy status

== ENCOUNTER 2017-07-10 01:32 | Emergency (ER) | payer MEDICAID ==
--- NOTE | 2017-07-10 01:38 | EDPHY ---
H & P Source: Patient, Police, EMS - Personal History Tetanus Vaccine Date: 2015 - Medical/Surgical History Hx Asthma: No Hx Chronic Respiratory Disease: No Hx Diabetes: No Hx Cardiac Disease: No Hx Renal Disease: No Hx Cirrhosis: No Hx Alcoholism: Yes Hx HIV/AIDS: No Hx Splenectomy or Spleen Trauma: No Other PMH: PMH: ETOH, DEPRESSION, BIPOLAR, HYPOTHYROID, SCHIZOPHRENIA, HEP C. PSH: BTL - Social History Smoking Status: Never smoked Time Seen by Provider: 07/10/17 01:36 HPI/ROS: HPI CHIEF COMPLAINT: Alcohol intoxication, heroin use, SI HISTORY OF PRESENT ILLNESS: Patient 52-year-old female, well-known to the emergency room as well as myself she has a history of alcoholism, homelessness, and bipolar/schizoaffective disorder she presents emergency room by EMS after she was found on [address] [employer] [facility] highly intoxicated with alcohol and did heroin. 911 was contacted as she states she was suicidal brought to the emergency room. Upon arrival to the emergency room highly intoxicated with alcohol. Past Medical History: Bipolar disorder/schizoaffective disorder, substance abuse, homelessness Past Surgical History: Tubal ligation Social History: Homeless, daily alcohol use, heroin use tonight. Family History: Noncontributory ROS REVIEW OF SYSTEMS: A comprehensive 10 point review of systems is otherwise negative aside from elements mentioned in the history of present illness. Exam Constitutional intoxicated, smells of alcohol triage nursing summary reviewed, vital signs reviewed, awake/alert. Eyes normal conjunctivae and sclera, EOMI, PERRLA. HENT normal inspection, atraumatic, moist mucus membranes, no epistaxis, neck supple/ no meningismus, no raccoon eyes. Respiratory clear to auscultation bilaterally, normal breath sounds, no respiratory distress, no wheezing. Cardiovascular rate normal, regular rhythm, no murmur, no edema, distal pulses normal. Gastrointestinal soft, non-tender, no rebound, no guarding, normal bowel sounds, no distension, no pulsatile mass. Genitourinary no CVA tenderness. Musculoskeletal no midline vertebral tenderness, full range of motion, no calf swelling, no tenderness of extremities, no meningismus, good pulses, neurovascularly intact. Skin pink, warm, & dry, no rash, skin atraumatic. Neurologic intoxicated smells of alcohol, slurring speech awake, alert and oriented x 3, AAOx3, moves all 4 extremities equally, motor intact, sensory intact, CN II-XII intact, normal cerebellar, normal vision Psychiatric normal mood/affect. Heme/Lymph/Immune no lymphadenopathy. Differential Diagnosis: Includes but is not limited to in a particular order substance abuse, homelessness, underlying mental illness, alcohol intoxication, heroin abuse Medical Decision Making: Plan for this patient IV establishment blood draw for medical clearance alcohol level. Will not place her on M1 hold at this time however will obtain her alcohol level and re-evaluate her when she is more sober. Re-evaluation: 0246: Serum alcohol level [id number]: Patient is currently sleeping. Intoxicated with alcohol. She is not on M1 hold. Once more sober this morning she will need to be re-evaluated. 0700: Signed over at 7:00 a.m. Shift change to Dr. Montejo. ([facility]) Constitutional: Initial Vital Signs Temperature (C) 36.7 C 07/10/17 01:35 Heart Rate 110 H 07/10/17 01:35 Respiratory Rate 16 07/10/17 01:35 Blood Pressure 160/100 H 07/10/17 01:35 O2 Sat (%) 95 07/10/17 01:35 O2 Delivery Mode Room Air O2 (L/minute) 2 Allergies/Adverse Reactions: latex [Latex] Allergy (Unknown, Verified 07/10/17 01:49) morphine Allergy (Unknown, Verified 07/10/17 01:49) Home Medications: Medication Instructions Recorded NK [No Known Home Meds] 01/23/17 Medical Decision Making ED Course/Re-evaluation: 7:00 a.m.-I assumed care of this patient at shift change. She presents with suicidal ideation and alcohol intoxication on an M1 hold. The plan is for assessment once she is sober. 8am-awake, tremulous, breathalyzer 0.68. Ativan 1 mg orally given. noon- seen by MH, cleared for outpt treatment of depression. Pt denies SI. I agree with this assessment and plan. (Genet Montejo) Differential Diagnosis: Differential diagnosis includes though it is not limited to suicidal ideation, overdose, acute psychosis, self-injury, alcohol withdrawal. (Genet Montejo) - Data Points Laboratory Results: Laboratory Results 07/10/17 01:40 07/10/17 01:40 07/10/17 02:40 Urine Opiates Screen NEGATIVE (NEGATIVE) Urine Barbiturates NEGATIVE (NEGATIVE) Ur Phencyclidine Scrn NEGATIVE (NEGATIVE) Ur Amphetamine Screen NEGATIVE (NEGATIVE) U Benzodiazepines Scrn NEGATIVE (NEGATIVE) Urine Cocaine Screen NEGATIVE (NEGATIVE) U Marijuana (THC) Screen NEGATIVE (NEGATIVE) Medications Given: Discontinued Medications Lorazepam (Ativan) 1 mg PO ONCE ONE Stop: 07/10/17 03:42 Last Admin: 07/10/17 03:47 Dose: 1 mg Lorazepam (Ativan) 1 mg PO EDNOW ONE Stop: 07/10/17 08:10 Last Admin: 07/10/17 08:15 Dose: 1 mg Lorazepam (Ativan) 1 mg PO EDNOW ONE Stop: 07/10/17 08:52 Last Admin: 07/10/17 08:57 Dose: 1 mg Departure - Departure Disposition: Home, Routine, Self-Care Clinical Impression: Suicidal ideation Alcoholic intoxication Qualifiers: Complication of substance-induced condition: uncomplicated Qualified Code(s): F10.920 - Alcohol use, unspecified with intoxication, uncomplicated Condition: Good Instructions: Alcohol Intoxication (ED), Abuse of Alcohol (DC), Suicide Prevention for Adults (ED) Additional Instructions: The [facility] has walk-in appointments for the homeless at the following days/locations. No appointment is needed. Friday 8-10 am @ [facility] 11 AM-1 PM @ [facility] Friday 8-10:30 AM @ [facility] Friday 8-10 AM @ [facility] 2-4 PM @ [facility] Friday 8-10 AM @ [facility] Referrals: [facility],. [Clinic] - As per Instructions [facility] [Outside] - As per Instructions
[2017-07-10 01:49] LABS: PLATELET COUNT 258 10^3/uL (150-400)
[2017-07-10] MEDS ORDERED: LORazepam 1 MG TAB PO ONE ×3 (03:41→08:51)
[2017-07-10] MEDS ORDERED: LORazepam 2 MG/ML INJ ONE (03:42)
[2017-07-10 12:19] VITALS: BP 135/101
== END 2017-07-10 12:49 | disposition home or self-care (01) ==
LOC: EDUNIT#
DX: F10.920 Alcohol use, unspecified with intoxication, uncomplicated (principal); R45.851 Suicidal ideations; Z91.040 Latex allergy status
CPT/HCPCS: 80305; G0480; J2060

== ENCOUNTER 2018-05-18 19:05 | Inpatient (IN) | payer MEDICAID, OTHER ==
[2018-05-18 19:32] LABS: PLATELET COUNT 258 10^3/uL (150-400)
--- NOTE | 2018-05-18 22:08 | EDPHY ---
HPI/HX/ROS/PE/MDM Narrative: CHIEF COMPLAINT:M1 hold HPI: The patient is a 53-year-old female with a history of mental illness and recent hospitalization at [facility] for same. She arrives in police custody, on an M1 hold. Patient describes depression related to of mother, and has expressed desire to commit suicide by pointing a gun at a photocopy operator. REVIEW OF SYSTEMS: Aside from elements discussed in the HPI, a comprehensive 10-point review of systems was reviewed and is negative. PMH:Depression SOCIAL HISTORY:Homeless. History of polysubstance abuse. PHYSICAL EXAM: General:Patient is awake in no acute distress. ENT:Eyes are normal to inspection. ENT inspection normal. Neck: Normal inspection. Full range of motion. Respiratory:No respiratory distress. Breath sounds normal bilaterally. Cardiovascular: Regular rate and rhythm. Strong peripheral pulses. Normal cap refill. Extremities: Normal appearance. Full range of motion. Neuro: No focal deficits. Psych: Depressed affect. Admits to . ED Course: Signed out to Dr. Arora pending mental health evaluation. - Data Points Laboratory Results: Laboratory Results 05/18/18 19:25 05/18/18 19:25 05/18/18 05/18/18 05/18/18 19:25 19:25 19:15 WBC 7.50 10^3/uL 10^3/uL (3.80-9.50) RBC 4.85 10^6/uL 10^6/uL (4.18-5.33) Hgb 15.1 g/dL g/dL (12.6-16.3) Hct 45.1 % % (38.0-47.0) MCV 93.0 fL fL (81.5-99.8) MCH 31.1 pg pg (27.9-34.1) MCHC 33.5 g/dL g/dL (32.4-36.7) RDW 12.9 % % (11.5-15.2) Plt Count 258 10^3/uL 10^3/uL (150-400) MPV 11.0 fL fL (8.7-11.7) Neut % (Auto) 43.0 % % (39.3-74.2) Lymph % (Auto) 51.1 % H % (15.0-45.0) [place] % (Auto) 3.7 % L % (4.5-13.0) Eos % (Auto) 1.2 % % (0.6-7.6) Baso % (Auto) 0.7 % % (0.3-1.7) Nucleat RBC Rel Count 0.0 % % (0.0-0.2) Absolute Neuts (auto) 3.23 10^3/uL 10^3/uL (1.70-6.50) Absolute Lymphs (auto) 3.83 10^3/uL H 10^3/uL (1.00-3.00) Absolute Monos (auto) 0.28 10^3/uL L 10^3/uL (0.30-0.80) Absolute Eos (auto) 0.09 10^3/uL 10^3/uL (0.03-0.40) Absolute Basos (auto) 0.05 10^3/uL 10^3/uL (0.02-0.10) Absolute Nucleated RBC 0.00 10^3/uL 10^3/uL (0-0.01) Immature Gran % 0.3 % % (0.0-1.1) Immature Gran # 0.02 10^3/uL 10^3/uL (0.00-0.10) Sodium 145 mEq/L mEq/L (135-145) Potassium 3.7 mEq/L mEq/L (3.5-5.2) Chloride 110 mEq/L mEq/L (97-110) Carbon Dioxide 27 mEq/l mEq/l (22-31) Anion Gap 8 mEq/L mEq/L (6-14) BUN 16 mg/dL mg/dL (7-23) Creatinine 0.8 mg/dL mg/dL (0.6-1.0) Estimated GFR > 60 Glucose 106 mg/dL H mg/dL (70-100) Calcium 9.6 mg/dL mg/dL (8.5-10.4) Urine Opiates Screen NEGATIVE (NEGATIVE) Urine Barbiturates NEGATIVE (NEGATIVE) Ur Phencyclidine Scrn NEGATIVE (NEGATIVE) Ur Amphetamine Screen NEGATIVE (NEGATIVE) U Benzodiazepines Scrn NEGATIVE (NEGATIVE) Urine Cocaine Screen NEGATIVE (NEGATIVE) U Marijuana (THC) Screen NEGATIVE (NEGATIVE) Ethyl Alcohol 179 mg/dL H mg/dL (0-10) General Time Seen by Provider: 05/18/18 19:07 Initial Vital Signs: Initial Vital Signs Temperature (C) 36.7 C 05/18/18 19:16 Heart Rate 86 05/18/18 19:16 Respiratory Rate 16 05/18/18 19:16 Blood Pressure 117/89 H 05/18/18 19:16 O2 Sat (%) 96 05/18/18 19:16 O2 Delivery Mode Room Air Allergies/Adverse Reactions: latex [Latex] Allergy (Unknown, Verified 07/10/17 01:49) morphine Allergy (Unknown, Verified 07/10/17 01:49) Home Medications: Medication Instructions Recorded NK [No Known Home Meds] 01/23/17 Departure - Departure Disposition: [facility] IP Clinical Impression: Suicidal ideation
[2018-05-18] MEDS ORDERED: LORazepam 1 MG TAB ONE (23:15)
[2018-05-18] MEDS ORDERED: LORazepam 2 MG/ML INJ IVP ONE (23:23)
[2018-05-18] MEDS ORDERED: LORazepam 1 MG TAB PO ONE (23:25)
[2018-05-19] MEDS ORDERED: LORazepam 0.5 MG TAB PO PRN (00:46)
[2018-05-19] MEDS ORDERED: chlordiazePOXIDE 25 MG CAP PO PRN (00:46)
[2018-05-19] MEDS ORDERED: PROMETHAZINE HCL 25 MG TAB PO PRN (00:46)
[2018-05-19] MEDS ORDERED: IBUPROFEN 200 MG TAB PO PRN (00:46)
[2018-05-19] MEDS ORDERED: MAGNESIUM HYDROXIDE 30 ML UDCUP PO PRN (00:46)
[2018-05-19] MEDS ORDERED: THIAMINE HCL 100 MG TAB (ONCE) PO ONE (00:46)
[2018-05-19] MEDS ORDERED: PROMETHAZINE HCL 25 MG SUPPR PR PRN (00:46)
[2018-05-19] MEDS ORDERED: OLANZapine DISINTEGR 10 MG TAB PO PRN (00:46)
[2018-05-19] MEDS ORDERED: MAG HYDROX/AL HYDROX/SIMETH 30 ML UDCUP PO PRN (00:46)
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
--- NOTE | 2018-05-19 01:03 | ASMTTCLDSP ---
TLC Discharge Disposition Disposition: Answers: Admit Discharge Concerns/Recommendations: Notes: In consultation with [facility] ED physician,Mellissa Orellana and on-call psychiatrist, Dr Graff , both concurred that Pt does appear to meet 27-65 criteria requiring psychiatric hospitalization as Pt does appear to be an imminent risk of harm to self due to a mental illness condition. Pt was read the Patient Rights and Responsibilities Statement on 05/18/2018 at 22:00, original placed in chart and copy given to pt. Was patient given the Answers: Yes Inpatient Behavioral Health Prohibited Belongings List while in the ED? For inpatient Dr Graff admission, the following psychiatrist agreed to accept patient for admission to Behavioral Health ([facility]): Type of Hold: Answers: M1/72-hour Hold Hold initiated by: Answers: Police Date Signed: 05/19/2018 01:02 AM Electronically Signed By:Janki Guillen
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
--- NOTE | 2018-05-19 09:53 | GCON ---
[f rep st] CONSULTATION DATE OF CONSULTATION: 05/19/2018 REFERRING PHYSICIAN: Zay Graff MD REASON FOR CONSULTATION: Medical evaluation. HISTORY OF PRESENT ILLNESS: A 53-year-old female with history of alcohol dependence, hepatitis C, al coholic pancreatitis, brought in by police on an M1 hold. She describes depression related to of her mother and a desire to commit suicide. She has a plan of doing this by pointing a gun at a co p. During my interview, patient was very somnolent and did not engage in any of my questions. REVIEW OF SYSTEMS: I completed a 10-point review of system, negative, except as noted in the HPI. PAST MEDICAL HISTORY: 1. Homelessness. 2. Polysubstance abuse: (alcohol, heroin). 3. Bipolar: 4. Hepatitis C. PAST SURGICAL HISTORY: She would not answer this question. FAMILY HISTORY: Noncontributory. HOME MEDICATIONS: None. ALLERGIES: Latex, morphine. SOCIAL HISTORY: She is homeless, history of polysubstance abuse with heroin and alcohol. PHYSICAL EXAMINATION: VITAL SIGNS: Temperature 36.5, blood pressure 115/57, heart rate is in 90s, r espirations 14, 95% on room air. GENERAL: She is lying in bed, very tired, disheveled. HEENT: PER RLA. Dry mucous membranes. CV: Regular rate. LUNGS: Poor inspiratory effort. ABDOMEN: No grima ce with palpation. NEURO: 2 through 12 intact. PSYCH: Very flat, not engaged in questions. ASSESSMENT/PLAN: 1. Suicidal ideation: Has had several previous emergency room visits for same issue. Had a plan of pointing a gun at a asbestos microscopist and hoping he would fire back. She is on an M1 hold. Defer treatment to ps ychiatric team. 2. Alcohol abuse: Unclear when last drink was. Monitor for withdrawal. Currently is normotensive without tachycardia. 3. Hepatitis C: Not a candidate for treatment right now. 4. Diet: Regular. 5. Deep venous thrombosis prophylaxis: Low risk, is ambulatory. Thank you for this consultation. Please call if any questions. /[id number]/MODL
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
[2018-05-19] MEDS: FOLIC ACID 1 MG TAB PO SCH (10:39)
[2018-05-19] MEDS: MULTIVITAMINS 1 EACH TAB PO SCH (10:40)
[2018-05-19] MEDS: THIAMINE HCL 100 MG TAB (DAILY X 3) PO SCH (10:40)
--- NOTE | 2018-05-19 11:35 | PDMN ---
Medical Necessity Medical necessity: Pt meets IP criteria per [employer] & MCG B-[id number]; est los >2 mn for eval/tx of major depressive disorder; pt on M1 hold due to being a danger to self; admit for safety, crisis stabilization & med management; per H&P & order 05/19/18
[2018-05-20] MEDS ORDERED: LORazepam 0.5 MG TAB PO PRN (06:27)
[2018-05-20] MEDS: FOLIC ACID 1 MG TAB PO SCH (10:28)
[2018-05-20] MEDS: THIAMINE HCL 100 MG TAB (DAILY X 3) PO SCH (10:28)
[2018-05-20] MEDS: MULTIVITAMINS 1 EACH TAB PO SCH (10:28)
--- NOTE | 2018-05-20 11:16 | SOAPPROG ---
SOAP Progress Note Assessment/Plan: Assessment: Major Depressive Disorder, with anxious distress complicated by alcohol use. Alcohol Use Disorder, Severe. Slight improvement noted. Patient could benefit from continued inpatient hospitalization for crisis stabilization, safety, and medication evaluation. Consider discharge tomorrow. Plan: 1. Psychotropic medications: After reviewing options, risks, and benefits patient agrees to continue current medications. No medication changes at this time as more time is needed to determine ongoing tolerability and efficacy. Plan is to continue to observe patient for response and side effects from medications, and ongoing monitoring and evaluation. 2. Review with patient informed consent and recommendations for psychotropic medication treatment listed below 3. Labs: no additional labs at this time 4. Therapy: continue milieu and group therapy 5. Further investigation including gathering information from patients relatives and review of past case records to inform treatment plan. 6. Safety/Wellness plan and follow-up outpatient appointments to be established prior to discharge. Next steps are for patient to meet with patient care assistant to plan a safe discharge plan and establish outpatient services for ongoing treatment. 7. Confer with inpatient treatment team regarding treatment plan. 8. Psychosocial stressors addressed through caser. 9. Legal status: M1 10. Consider discharge on if patient is in stable condition, safe, and has a safe discharge plan. 11. Substance abuse interventions: alcohol 12. Establish follow-up outpatient services in [place] prior to discharge. PSYCHOTROPIC MEDICATION TREATMENT INFORMED CONSENT and RECOMMENDATIONS: Review nature of condition, diagnosis, and prognosis. Review nature and purpose of psychotropic medication treatment. Review type of psychotropic medications being ordered. Review risk and benefits of psychotropic medication treatment. Review probable length of time patient will need to take medications. Review risk and benefits of not undergoing psychotropic medication treatment. Review alternative treatments to psychotropic medications. Review psychotropic medications contraindications, drug-drug interactions, side effects, and importance of reporting any side effects to a psychiatric provider or nurse during inpatient hospitalization, and upon discharge to patients psychiatric outpatient provider, primary care provider, or other health health care / medical job titles. Review importance of asking a nurse, psychiatric provider, or primary care provider any questions or problems concerning the psychotropic medications. Verify patient understands the information that has been provided, and understands, accepts, and agrees to psychotropic medications. Review patients safety plan and importance of patient to report to staff while hospitalized if patient is ever a danger to self/others, or unable to care for self, and upon discharge, the importance for patient to contact [facility] or 911, or go to the nearest emergency room, if patient is ever a danger to self/others, or unable to care for self. Recommend that upon discharge patient establish medication management treatment with a psychiatric provider, establishes routine therapy appointments, and follow-up with primary care provider. Verify patient understands and agrees to these recommendations. 05/20/18 11:15 Subjective: Following up with patient for evaluation of depression, anxiety, and safety. Patient reports, "Feeling better." Patient expresses the following psychiatric symptoms feel tired. Patient reports taking medications as prescribed, and describes response to medications as good. Patient does not report undesirable side effects from the medications, and agrees to continue current medications. Patient describes getting 12 hours of sleep. Patient reports she plans to return to her apartment in [place] after discharge. Objective: Vital Signs Temp Pulse Resp BP Pulse Ox 36.9 C 88 16 106/66 94 05/20/18 09:47 05/20/18 09:47 05/20/18 09:47 05/20/18 09:47 05/20/18 09:47 NURSING REPORT: Consulted with nursing for update on patients progress in treatment. Nurses report patient is not engaged in treatment, is not attending groups, slept 12 hours, expresses the following psychiatric symptoms: depression , exhibits the following psychiatric symptoms: depressed, withdrawn, isolating to room; is eating all meals, is agreeable to medications and taking as prescribed with no report of side effects, with no s/s of EPS/akathisia, and denies SI/HI, denies A/V hallucinations, and denies delusions. MSE: The patient is a well-nourished female looking stated chronological age. Attire is appropriate and dress is hospital garb. Grooming status is appropriate. Ambulation is independent. Gait is normal and coordinated. Posture is normal and relaxed. Eye contact is appropriate. Motor activity is appropriate with purposeful, organized, coordinated movements; with no involuntary movements. Attitude is fairly cooperative. Patient appears attentive and does relate well to this interviewer. Language production is spontaneous. R/R/V are normal. Amount is appropriate. Articulation is clear. Patient reports mood as okay with incongruent and flat affect. Patients thought process is linear and logical with no signs of thought disorder. Patient denies suicidal thoughts, denies homicidal ideation. Patient denies auditory, visual hallucinations. Patient denies delusions. Patient does not appear to be attending to internal stimuli. Patients attention and concentration are fair. Patient is oriented to person, place, time, and situation. Patients insight and judgment are poor, and appears to be a fairly reliable historian. Patient has no apparent dysfunction in recent or remote memory noted, and no evidence of gross cognitive dysfunction noted at any point during the interview. SUBSTANCE ABUSE BRIEF INTERVENTION: Brief intervention regarding the risks of alcohol abuse is provided to patient with goal to reduce the risk of harm that could result from the continued use of alcohol, with the general aim to investigate the problem, raise awareness of problem, develop a solution with the patient, recommend a specific change or activity, and motivate the patient toward change. Assess substance abuse behavior and give supportive advice about harm reduction, recommend a reduction in hazardous/at-risk consumption patterns, and facilitate referrals for additional specialized treatment with cna caregiver. Intermediate goal is for the patient to quit and attend outpatient substance abuse treatment. Intervention focus on intermediate goals to allow for more immediate success in the treatment process to keep the patient motivated. Review following with patient: Alcohol/Binge Drinking risks : short-term: injuries, violence, alcohol poisoning, risky sexual behaviors. Long-term: high blood pressure, stroke, liver disease, digestive problems, cancer, learning and memory problems, depression and anxiety, social problems, and alcohol dependence. OUTPATIENT SUBSTANCE ABUSE TREATMENT: Patient referred to outpatient provider and treatment for continued treatment related to substance abuse. - Time Spent With Patient Time Spent With Patient: 15 minutes, met with patient with treatment team. - Pending Discharge Pending Discharge Within 24 Hours: No Pending Discharge Within 48 Hours: No ICD10 Worksheet Patient Problems: Problems Problem Status Onset Alcohol use disorder, severe, dependence Acute Major depressive disorder, severe Chronic Polysubstance abuse Acute Alcoholic intoxication Acute Suicidal ideation Acute
--- NOTE | 2018-05-20 11:21 | ASMTCMCOM ---
CM Note CM Note Notes: Ct. was in bed when CC entered her room. Ct. reported that she doesn't feel good. She denied having any MH providers but agreed to sign a [place] for [facility]. She reported that her plan is to return to her apartment in [place] upon her discharge. Date Signed: 05/20/2018 11:21 AM Electronically Signed By:Lucina Ng
[2018-05-20] MEDS ORDERED: OLANZapine DISINTEGR 10 MG TAB PO PRN (15:02)
[2018-05-21 06:56] VITALS: BP 103/62
[2018-05-21] MEDS: MULTIVITAMINS 1 EACH TAB PO SCH (08:26)
[2018-05-21] MEDS: FOLIC ACID 1 MG TAB PO SCH (08:26)
[2018-05-21] MEDS: THIAMINE HCL 100 MG TAB (DAILY X 3) PO SCH (08:26)
--- NOTE | 2018-05-21 11:24 | ASMTCMCOM ---
CM Note CM Note Notes: Ct. is discharging home today. Ct. appears much better and was pleasant and cooperative. She found out yesterday that she got a job at [employer] near her home and was very pleased about it. Ct. discussed her goal to remain sober and establish services with the homeless coalition [facility]. Date Signed: 05/21/2018 11:24 AM Electronically Signed By:Lucina Ng
--- NOTE | 2018-05-21 12:30 | BDS ---
[f rep st] BEHAVIORAL HEALTH DISCHARGE SUMMARY REASON FOR ADMISSION: From the ED note dated 05/18/2018, patient arrived to emergency department in police custody on an M1 hold. Patient reported increased depression related to the of her mother and expressed desire to commit suicide by pointing a gun at a copier repair technician. Patient was admitted involuntarily on an M1 hold for being a danger to herself and was admitted for safety, crisis stabilization, and medication management. ADMITTING DIAGNOSES: 1. Major depressive disorder, severe. 2. Alcohol use disorder, severe dependence. ADMISSION PHYSICAL EXAM: Patient was seen for history and physical consultation on 05/19/2018, for medical clearance for inpatient psychiatric hospitalization and treatment. Patient was medically cleared for inpatient psychiatric hospitalization and treatment. For further details, please refer to consultation note dated 05/19/2018. ADMISSION LABS: 1. CBC within normal limits, except lymphocytes were elevated at 51.1, monocytes were low at 3.7, absolute lymphocytes were elevated at 3.83, and absolute monocytes were low at 0.28. 2. BMP within normal limits, except glucose is elevated at 106. 3. Hemoglobin A1c within normal limits at 5.2. 4. Liver function within normal limits, except total protein was elevated at 8.3. 5. Lipid panel within normal limits, except triglycerides were elevated at 186 , LDL cholesterol calculated was low at 69, VLDL cholesterol was elevated at 37. 6. Toxicology screen was negative for all substances screened. Ethyl alcohol level was 179. MAJOR PROCEDURES/TESTS: None. HOSPITAL COURSE: The most prominent symptoms and behaviors while the patient was here were reports of severe depression and patient was isolated to her room , withdrawn. Treatment modalities utilized were milieu and group therapy. Patient was monitored for alcohol withdrawal throughout the course of her hospitalization. Patient has improved considerably with no signs of psychiatric symptoms and no psychiatric symptoms expressed. Patient reports she has improved since admission, states to be in stable condition, feels safe to discharge, and she contracts for safety. Patients response to treatment was good. There were no adverse or unexpected results of treatment. The patient was safe throughout stay, active in treatment, engaged in groups, and was appropriate with staff. Patient met with treatment team prior to discharge to assess readiness to discharge and review discharge plan. The treatment team consensus is the patient in stable condition, has a safe discharge plan, and is ready to discharge today. CONDITION AT DISCHARGE: Patient is in stable condition and is no longer a danger to self or others, and is not gravely disabled due to mental illness. Patient is no longer in need of inpatient level of care, and can be safely and effectively treated within the community. The patients level of risk at time of discharge is low. MSE: The patient is casually dressed and with good hygiene , and looks stated age. Patient is sitting, posture is upright, and position is relaxed. Patient appears awake, alert, and responds appropriately and reasonably during interview. Patient is engaged, relates well to interviewer, and emotional facial expression is appropriate to situation and changes appropriately with topic. Patient is cooperative, makes comfortable eye contact , and movements are voluntary, deliberate, coordinated, and smooth and even with no inappropriate movements. Patient makes laryngeal sounds effortlessly and shares conversation appropriately; pace of conversation is appropriate, and stream of talking is fluent; articulation is clear and understandable; word choice is effortless and appropriate for education level; completes sentences, occasionally pausing to think; rate and volume are appropriate for interview and setting. Patient reports mood as euthymic. Patients affect is stable with full variable range, congruent with mood, and appropriate to speech and circumstances. Patient has linear and logical thinking, with no loose associations, tangential thought, thought blocking, concrete thinking, or any other signs of formal thought disorder. Patient denies suicidal and homicidal ideation, and denies hallucinations and delusions. Patient appears to be a reliable historian with sound judgement and good insight into current condition. Patient has no apparent dysfunction in recent or remote memory noted , and no evidence of gross cognitive dysfunction noted at any point during the interview. DISCHARGE DIAGNOSES: 1. Major depressive disorder, severe. 2. Alcohol use disorder, severe dependence. CURRENT MEDICATIONS: After reviewing options risks and benefits with the patient, patient reports she is not interested in psychotropic medications at this time for depression. Patient is no longer showing signs or symptoms of alcohol withdrawal and no additional medications will be needed for alcohol withdrawal. DISPOSITION: Patient left hospital independently and voluntarily and plans to return to her apartment in [place], [place]. FOLLOWUP: activity coordinator reports the appropriate outpatient follow-up services have been established and outpatient appointments have been scheduled. The patient received written instructions with times and dates of outpatient follow-up appointments. The following follow-up recommendations were provided to the patient at discharge: Continue psychotropic medications as prescribed and attend appointments as scheduled. Report any side effects to a psychiatric outpatient provider, a primary care provider, or other health client care specialist. Address any questions or problems concerning the psychotropic medications with a psychiatric outpatient provider, a primary care provider, or other health client care specialist. Contact [facility] or [facility], or go to the nearest emergency room, if you are ever a danger to yourself/others, or unable to care for yourself. As soon as possible, establish a routine medication management treatment with a psychiatric provider, establish routine therapy appointments, and follow-up with a primary care provider. SUBSTANCE ABUSE BRIEF INTERVENTION: Brief intervention regarding the risks of alcohol abuse is provided to patient with goal to reduce the risk of harm that could result from the continued use of alcohol, with the general aim to investigate the problem, raise awareness of problem, develop a solution with the patient, recommend a specific change or activity, and motivate the patient toward change. Assess substance abuse behavior and give supportive advice about harm reduction, recommend a reduction in hazardous/at-risk consumption patterns, and facilitate referrals for additional specialized treatment with vision care associate. Intermediate goal is for the patient to quit use of alcohol and attend outpatient substance abuse treatment. Intervention focus on intermediate goals to allow for more immediate success in the treatment process to keep the patient motivated. Review following with patient: Alcohol/Binge Drinking risks: short-term: injuries, violence, alcohol poisoning, risky sexual behaviors. Long-term: high blood pressure, stroke, liver disease, digestive problems, cancer, learning and memory problems, depression and anxiety, social problems, and alcohol dependence. OUTPATIENT SUBSTANCE ABUSE TREATMENT: Patient referred to outpatient provider and treatment for continued treatment related to substance abuse. LEGAL COURSE: Patient was admitted on an M1 hold for involuntary inpatient psychiatric hospitalization. Patient discharged today independently and voluntarily. ATTITUDE AT TIME OF DISCHARGE: The patients attitude was positive at time of discharge, and patient reports looking forward to discharging today. The patient reports she feels safe to discharge, is no longer a danger to herself or others, is in stable condition, and contracts for safety. Patient states she will continue medications as prescribed, and establish medication management treatment with an outpatient provider after discharge. Patient reports she understands the information that has been provided to her, and she understands, accepts, and agrees to psychotropic medications. Patient describes internal protective factors as the coping skills she has learned while hospitalized here, and she plans to continue to practice these coping skills after discharge. LABS AND RADIOLOGY STUDIES: There were no pending labs or studies at time of discharge. ADVANCE DIRECTIVES: There were no advance directives on file, and patient was full code during this hospitalization. The following psychotropic medication treatment informed consent and recommendations were provided to the patient at time of discharge. Patient reports she understands, accepts, and agrees to the information that has been provided. PSYCHOTROPIC MEDICATION TREATMENT INFORMED CONSENT and RECOMMENDATIONS: Review nature of condition, diagnosis, and prognosis. Review nature and purpose of psychotropic medication treatment. Review type of psychotropic medications being prescribed. Review risk and benefits of psychotropic medication treatment. Review probable length of time will need to take medications. Review risk and benefits of not undergoing psychotropic medication treatment. Review alternative treatments to psychotropic medications. Review psychotropic medications contraindications, side effects, and importance of reporting any side effects to a psychiatric provider, primary care provider, or other health client care specialist. Review importance of her asking a psychiatric provider or primary care provider any questions or problems concerning the psychotropic medications. Review importance of reporting to a psychiatric provider, primary care provider, or other health client care specialist if she plans to or becomes . Review safety plan and the importance to contact [facility] or [facility] , or go to the nearest emergency room, if ever a danger to yourself/others, or unable to care for yourself. Recommend upon discharge to establish routine medication management treatment with a psychiatric provider, establish routine therapy appointments, and follow-up with a primary care provider. Verify patient understands, accepts, and agrees to the information that has been provided. /[id number]/MODL MTDD
== END 2018-05-21 13:01 | disposition home or self-care (01) | DRG 885 ==
LOC: BBEH 05-19 00:33
PROVIDERS: ADMIT Psychiatry & Neurology Psychiatry; ATTEND Psychiatry & Neurology Psychiatry
DX: F32.2 Major depressive disorder, single episode, severe without psychotic features (principal); R45.851 Suicidal ideations; F10.20 Alcohol dependence, uncomplicated; B19.20 Unspecified viral hepatitis C without hepatic coma
CPT/HCPCS: 80305; G0480